=== PATIENT | female | born 2000 | race American Indian/Alaskan Native ===

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

== ENCOUNTER 2021-09-10 14:35 | Inpatient (IN) | payer MEDICAID ==
[2021-09-10] MEDS ORDERED: Acetaminophen 325 MG Tab PO PRN (16:54)
[2021-09-10] MEDS ORDERED: Misoprostol 400 MCG (4 X 100 MCG TAB) RECTAL PRN (16:54)
[2021-09-10] MEDS ORDERED: Methylergonovine 0.2 MG/1 ML Amp IM PRN (16:54)
[2021-09-10] MEDS ORDERED: Carboprost Tromethamine 250 MCG/1 ML Amp IM PRN (16:54)
[2021-09-10] MEDS ORDERED: Sodium Chloride 0.9% 10 ML Syringe FLUSH PRN (16:54)
[2021-09-10] MEDS ORDERED: Tranexamic Acid 1,000 MG in Sodium Chloride 0.9% 100 ML IV PRN (16:54)
[2021-09-10] MEDS ORDERED: Lactated Ringers 1,000 ML IV ONE (16:54)
[2021-09-10] MEDS ORDERED: Lidocaine 1% 30 ML SDV INJECT PRN (16:54)
[2021-09-10] MEDS ORDERED: Oxytocin/Normal Saline 30 UNIT/500 ML BAG IV SCH (17:00)
[2021-09-10] MEDS: Oxytocin/Normal Saline 30 UNIT/500 ML BAG IV SCH (20:06)
[2021-09-10] MEDS: Lactated Ringers 1,000 ML IV SCH (20:06)
[2021-09-10] MEDS ORDERED: Nalbuphine 20 MG/1 ML Amp IM PRN (22:16)
[2021-09-11] MEDS: Ondansetron 4 MG/2 ML SDV IVPUSH PRN ×2 (00:17→04:41)
[2021-09-11] MEDS: Lactated Ringers 1,000 ML IV SCH ×3 (00:18→04:36)
[2021-09-11] MEDS ORDERED: Morphine PF 1 MG/ML Amp ITHECAL ONE (00:45)
[2021-09-11] MEDS ORDERED: ePHEDrine 50 MG/ML SDV ONE (05:09)
[2021-09-11] MEDS ORDERED: ePHEDrine 50 MG/ML SDV IVPUSH ONE (05:12)
[2021-09-11] MEDS ORDERED: Simethicone 80 MG Tab.Chew PO PRN (08:16)
[2021-09-11] MEDS ORDERED: Sodium Chloride 0.9% 10 ML Syringe FLUSH PRN (08:16)
[2021-09-11] MEDS ORDERED: Oxytocin 10 Units/1 ML SDV IM PRN (08:16)
[2021-09-11] MEDS ORDERED: Benzocaine/Menthol 20%-0.5% Spray 78 GM Cannister TOP PRN (08:16)
[2021-09-11] MEDS: Oxytocin/Normal Saline 30 UNIT/500 ML BAG IV SCH (08:35)
[2021-09-11] MEDS ORDERED: cefTRIAXone 1 GM in Sodium Chloride 0.9% 50 ML IV ONE (09:30)
[2021-09-11] MEDS: Prenatal Multivitamin with Calcium/Folic Acid/Iron Tab PO SCH (11:36)
[2021-09-11] MEDS ORDERED: Zolpidem 5 MG Tab PO PRN (21:00)
[2021-09-11] MEDS: Docusate Sodium 100 MG Cap PO PRN (21:34)
[2021-09-11] MEDS: Ibuprofen 800 MG Tab PO PRN (21:35)
[2021-09-12] MEDS: Ibuprofen 800 MG Tab PO PRN ×2 (13:19→21:06)
[2021-09-12] MEDS: Ferrous Sulfate 325 MG Tab PO SCH (13:20)
[2021-09-12] MEDS: Prenatal Multivitamin with Calcium/Folic Acid/Iron Tab PO SCH (13:20)
[2021-09-12] MEDS: Docusate Sodium 100 MG Cap PO PRN (21:05)
[2021-09-13 08:44] VITALS: BP 110/66; PULSE 71
[2021-09-13] MEDS: Docusate Sodium 100 MG Cap PO PRN (09:03)
[2021-09-13] MEDS: Prenatal Multivitamin with Calcium/Folic Acid/Iron Tab PO SCH (09:04)
[2021-09-13] MEDS: Ferrous Sulfate 325 MG Tab PO SCH (09:04)
[2021-09-13] MEDS: Ibuprofen 800 MG Tab PO PRN (09:05)
== END 2021-09-13 13:45 | disposition home or self-care (01) | DRG 797 ==
LOC: DL.OBCHECK 14:35 → DL.OB 14:40 → OBSVTOIN 09-11 07:54
PROVIDERS: ADMIT Family Medicine; ATTEND Family Medicine
PROC: 10D17ZZ Extraction of Products of Conception, Retained, Via Natural or Artificial Opening (ICD-10-PCS; principal; 2021-09-11)
PROC: 10D07Z6 Extraction of Products of Conception, Vacuum, Via Natural or Artificial Opening (ICD-10-PCS; 2021-09-11)
PROC: 0HQ9XZZ Repair Perineum Skin, External Approach (ICD-10-PCS; 2021-09-11)
DX: O69.81X0 Labor and delivery complicated by cord around neck, without compression, not applicable or unspecified (principal); D62 Acute posthemorrhagic anemia; Z37.0 Single live birth; O99.02 Anemia complicating childbirth; O76 Abnormality in fetal heart rate and rhythm complicating labor and delivery; Z20.822 Contact with and (suspected) exposure to COVID-19; O70.0 First degree perineal laceration during delivery; Z28.82 Immunization not carried out because of caregiver refusal; O73.0 Retained placenta without hemorrhage; O62.2 Other uterine inertia; Z3A.39 39 weeks gestation of pregnancy
CPT/HCPCS: 36415; 51701; 59409; 62320; 81001; 84112; 85027; 87210; A9270-GY; J0696; J2274; J2300; J2405; J2590; J7120; U0002

== ENCOUNTER 2023-12-31 09:52 | Emergency (ER) | payer SELFPAY ==
[2023-12-31] MEDS: Acetaminophen 325 MG Tab PO ONE (10:12)
[2023-12-31 10:23] LABS: BASOPHILS PERCENT AUTO 0.2 % (0.0-1.0); EOSINOPHILS PERCENT AUTO 2.3 % (1.0-3.0); LYMPHOCYTES PERCENT AUTO 17.8 % (20.5-50.1); MEAN CORPUSCULAR HEMOGLOBIN 28.3 pg (27.0-34.0); MEAN CORPUSCULAR HGB CONC 33.3 g/dL (33.0-35.0); MONOCYTES PERCENT AUTO 6.7 % (2-8); PLATELET COUNT,PLT 331 10^3/uL (150-450); RED BLOOD CELL COUNT 4.59 10^6/uL (4.2-5.4); WHITE BLOOD CELL COUNT,WBC 8.4 10^3/uL (5.0-10.0)
[2023-12-31 10:42] LABS: ALBUMIN 3.5 g/dL (3.4-5.0); ANION GAP 12.5 mEq/L (7-13); BILIRUBIN TOTAL 0.2 mg/dL (0.2-1.0); BUN/CREATININE RATIO 3.8 (No establ ref range); CREATININE 0.53 mg/dL (0.55-1.02); EST CRCL DRUG DOSING (CG) 131.68 mL/min; MAGNESIUM 1.9 mg/dL (1.8-2.4); POTASSIUM,K 4.5 mmol/L (3.5-5.1); PROTEIN TOTAL,TP 6.9 g/dL (6.4-8.2)
[2023-12-31 11:53] LABS: APPEARANCE,URINE SLIGHTLY CLOUDY (CLEAR); BILIRUBIN,URINE NEGATIVE (NEGATIVE); COLOR,URINE YELLOW (YELLOW); GLUCOSE,URINE NEGATIVE (NEGATIVE); KETONES,URINE NEGATIVE (NEGATIVE); LEUKOCYTE ESTERASE,URINE TRACE (NEGATIVE); NITRITE,URINE NEGATIVE (NEGATIVE); OCCULT BLOOD,URINE NEGATIVE (NEGATIVE); PROTEIN,URINE NEGATIVE (NEGATIVE); UROBILINOGEN,URINE 0.2 mg/dL (0.2-1.0)
[2023-12-31 11:59] LABS: AMPHETAMINES,URINE NEGATIVE (NEGATIVE); BARBITURATES,URINE NEGATIVE (NEGATIVE); BENZODIAZEPINE,URINE NEGATIVE (NEGATIVE); MDMA (ECSTASY), URINE NEGATIVE (NEGATIVE); METHADONE,URINE NEGATIVE (NEGATIVE); METHAMPHETAMINES,URINE NEGATIVE (NEGATIVE); OPIATES,URINE NEGATIVE (NEGATIVE); OXYCODONE,URINE NEGATIVE (NEGATIVE); PHENCYCLIDINE,URINE NEGATIVE (NEGATIVE); TCA,URINE NEGATIVE (NEGATIVE)
[2023-12-31 12:01] LABS: EPITHELIAL CELLS,URINE MANY /HPF (NOT SEEN); RBC,URINE 0-5 /HPF (0-5); WBC,URINE 0-5 /HPF (0-5/HPF)
[2023-12-31 12:03] LABS: BACTERIA,URINE FEW /HPF (0-FEW/HPF)
[2023-12-31 12:04] LABS: MUCUS,URINE FEW /LPF (NOT SEEN)
[2023-12-31 12:25] VITALS: BP 118/72; PULSE 88
== END 2023-12-31 12:20 | disposition home or self-care (01) ==
LOC: DL.ED 09:52
DX: K80.20 Calculus of gallbladder without cholecystitis without obstruction (principal); J45.909 Unspecified asthma, uncomplicated; Z86.16 Personal history of COVID-19; F17.210 Nicotine dependence, cigarettes, uncomplicated; Z79.899 Other long term (current) drug therapy
CPT/HCPCS: 36415; 76705; 76801; 80053; 80305; 81001; 83690; 83735; 84702; 85025; 87086; 99284; A9270; 87088; 93010